=== PATIENT | female | born 1955 | race Caucasian/White ===

== ENCOUNTER 2019-10-20 16:34 | Emergency (ER) | payer MEDICARE, OTHER ==
[~2019-10-20] VITALS: Ht 175.3 cm; Wt 90.0 kg
[2019-10-20 16:42] VITALS: BP 146/68
[2019-10-20] MEDS ORDERED: ibuprofen tablet 400 MG TABLET PO ONE (17:35)
[2019-10-20] MEDS ORDERED: HYDR-3965 PO (17:54)
== END 2019-10-20 18:29 | disposition home or self-care (01) ==
LOC: ER 16:36
DX: S52.591A Other fractures of lower end of right radius, initial encounter for closed fracture (principal); Z79.899 Other long term (current) drug therapy; W01.0XXA Fall on same level from slipping, tripping and stumbling without subsequent striking against object, initial encounter; Y93.29 Activity, other involving ice and snow; Y92.89 Other specified places as the place of occurrence of the external cause; Y99.8 Other external cause status
CPT/HCPCS: 29125; 73110; 99283

== ENCOUNTER 2019-10-29 15:36 | Outpatient (CLI) | payer MEDICARE, OTHER | END 2019-10-29 17:30 | disposition home or self-care (01) | LOC: ORTHO 15:36 | PROVIDERS: ATTEND Orthopaedic Surgery | DX: S52.611D Displaced fracture of right ulna styloid process, subsequent encounter for closed fracture with routine healing (principal); X58.XXXD Exposure to other specified factors, subsequent encounter | CPT/HCPCS: 73110; G0463 ==